=== PATIENT | male | born 1985 | race Caucasian/White ===

== ENCOUNTER 2016-08-30 02:38 | Emergency (ER) | payer MEDICAID ==
[~2016-08-30] VITALS: Ht 170.2 cm; Wt 57.0 kg
[2016-08-30 02:41] VITALS: Ht 170.2 cm; Wt 57.0 kg
[2016-08-30] MEDS ORDERED: CEFTRIAXONE 250 MG INJ IM ONE (03:30)
[2016-08-30] MEDS ORDERED: AZITHROMYCIN 250 MG TAB PO ONE (03:30)
--- NOTE | 2016-08-30 03:40 | ERD ---
ER Documentation Chief Complaint Date/Time DATE: 08/30/16 TIME: 03:38 Chief Complaint scroatal pain x 2 days, painful urination HPI 31-year-old male presenting emergency department for complaints of dysuria, penile discharge for 2 weeks now, scrotal pain for 2 days. Patient's complaining of right scrotal pain, throbbing pain, 6/10 scale, accompanied with redness and swelling. Patient also has been having dysuria for 2 weeks, with penile discharge, yellowish, burning pain, for/10 scale, worse upon urination. Patient had unprotected sex 2 weeks ago prior to having the symptoms, patient had this partner and it was new. Patient denies any flank pain. Patient denies any fever or chills. ROS All systems reviewed and are negative except as per history of present illness. Medications Home Meds Reported Medications [none] Unknown Strength No Conflict Check 08/30/16 Allergies Allergies: Coded Allergies: No Known Allergy (Unverified , 08/30/16) PMhx/Soc Medical and Surgical Hx: pt denies Medical Hx, pt denies Surgical Hx FmHx Family History: No coronary disease, No diabetes, No other Physical Exam Vitals Vital Signs Date Time Temp Pulse Resp B/P Pulse Ox O2 Delivery O2 Flow Rate FiO2 08/30/16 02:41 97.4 102 20 136/81 100 Physical Exam GENERAL: The patient is well developed and appropriate for usual state of health, in no apparent distress. CHEST: Clear to auscultation bilaterally. There are no rales, wheezes or rhonchi. HEART: Regular rate and rhythm. No murmurs, clicks, rubs or gallops. No S3 or S4. ABDOMEN: Soft, nontender and nondistended. Good bowel sounds. No rebound or guarding. No gross peritonitis. No gross organomegaly or masses. No Camejo sign or McBurney point tenderness. BACK: No midline or flank tenderness. EXTREMITIES: Equal pulses bilaterally. There is no peripheral clubbing, cyanosis or edema. No focal swelling or erythema. Full range of motion. Grossly neurovascularly intact. NEURO: Alert and oriented. Cranial nerves 2-12 intact. Motor strength in all 4 extremities with 5/5 strength. Sensation grossly intact. Normal speech and gait. SKIN: There is no apparent rash or petechia. The skin is warm and dry. HEMATOLOGIC AND LYMPHATIC: There is no evidence of excessive bruising or lymphedema. No gross cervical, axillary, or inguinal lymphadenopathy. : Noted right scrotal redness and swelling, tenderness on palpation noted. No penile discharge noted. No lesions noted Results 24 hrs Current Medications Medications (Trade) Dose Ordered Sig/Chato Route PRN Reason Start Time Stop Time Status Last Admin Dose Admin Azithromycin (Zithromax) 1,000 mg ONCE ONCE PO 08/30/16 03:30 08/30/16 03:31 DC 08/30/16 03:28 Ceftriaxone Sodium (Rocephin) 250 mg ONCE ONCE IM 08/30/16 03:30 08/30/16 03:31 DC 08/30/16 03:28 azithromycin and Rocephin was given here in emergency department for treatment for STD. PROCEDURE: Ultrasound of the scrotum. CLINICAL INDICATION: Pain. TECHNIQUE: Ultrasound of the scrotum was performed utilizing color Doppler flow imaging COMPARISON: There are no similar studies submitted for comparison. FINDINGS: Right testis: Size (cm): 3.5 x 2.5 x 2.9 Echotexture: Normal Doppler flow: Present Epididymal head: Increased vascular flow is seen in the right epididymal head. Hydrocele: There is mild to moderate hydrocele. Varicocele: None Left testis: Size (cm): 3.7 x 2.5 x 2.4 Echotexture: Normal Doppler flow: Present Epididymal head: Unremarkable Hydrocele: None Varicocele: None IMPRESSION: Increased vascular flow within the right epididymis with small to moderate right hydrocele. Findings are suggestive of right-sided epididymoorchitis. RPTAT: HIKT .Kel Addison MD, MD Date Time Electronically viewed and signed by .Kel Addison MD, on 08/30/2016 04:00 .T/ CC: LEANNA HILLIARD BULK MAIL CLERK Procedures/MDM Medical decision making: Patient symptoms is likely consistent with epididymoorchitis, no symptoms of any abscess at this time. No testicular torsion noted. Patient most like he was exposed to sexually transmitted disease from unprotected sex, was given Rocephin and azithromycin here in emergency department. Patient was given a prescription for Augmentin and Bactrim DS, to advised to follow-up with primary care doctor in 2-3 days for reevaluation of symptoms, patient was advised to return to emergency department for any worsening symptoms. Patient was given ibuprofen for pain, Lutsen for severe pain. Departure Diagnosis: Primary Impression: Epididymo-orchitis Condition: Stable Patient Instructions: Treating Epididymitis and Orchitis LEANNA HILLIARD NP Aug 30, 2016 03:40
--- NOTE | 2016-08-30 04:00 | RADRPT ---
PROCEDURE: Ultrasound of the scrotum. CLINICAL INDICATION: Pain. TECHNIQUE: Ultrasound of the scrotum was performed utilizing color Doppler flow imaging COMPARISON: There are no similar studies submitted for comparison. FINDINGS: Right testis: Size (cm): 3.5 x 2.5 x 2.9 Echotexture: Normal Doppler flow: Present Epididymal head: Increased vascular flow is seen in the right epididymal head. Hydrocele: There is mild to moderate hydrocele. Varicocele: None Left testis: Size (cm): 3.7 x 2.5 x 2.4 Echotexture: Normal Doppler flow: Present Epididymal head: Unremarkable Hydrocele: None Varicocele: None IMPRESSION: Increased vascular flow within the right epididymis with small to moderate right hydrocele. Finding s are suggestive of right-sided epididymoorchitis. RPTAT: HIKT .Kel Addison MD, Date Time Electronically viewed and signed by .Kel Addison MD, on 08/30/2016 04:00 .T/
[2016-08-30 04:07] LABS: URINE BLOOD (Dip) POC 1+ (NEGATIVE)
[2016-08-30] MEDS ORDERED: AMOX1TAB10 PO (04:07)
[2016-08-30] MEDS ORDERED: HYDR-906 PO (04:07)
[2016-08-30] MEDS ORDERED: IBUP-1542 PO (04:07)
[2016-08-30] MEDS ORDERED: BACTDS PO (04:07)
== END 2016-08-30 04:21 | disposition home or self-care (01) ==
LOC: FTE 02:38
DX: N45.3 Epididymo-orchitis (principal); Z87.891 Personal history of nicotine dependence
CPT/HCPCS: 76870; 81003; 87591; 96372; J0696; Z7502; Z7610

== ENCOUNTER 2016-09-01 04:51 | Emergency (ER) | payer MEDICAID ==
[~2016-09-01] VITALS: Ht 167.6 cm; Wt 57.0 kg
[~2016-09-01 04:51] MED LIST: AMOX1TAB10 PO; BACTDS PO; HYDR-906 PO; IBUP-1542 PO
[2016-09-01 04:54] VITALS: Ht 167.6 cm; Wt 57.0 kg
--- NOTE | 2016-09-01 05:04 | ERD ---
ER Documentation Chief Complaint Date/Time DATE: 09/01/16 TIME: 05:02 Chief Complaint lost presciption for pain med and antibiotics per patient verbatim HPI This is a 31-year-old male presents to the emergent room for a medication refill. The patient was seen in the emergency department a few days ago was diagnosed with an infection. The patient was discharged with Augmentin, Bactrim , Motrin, and [place] however he states he lost medication prescription was unable to get them filled. He presents to the ER for a new prescription of his medication. ROS All systems reviewed and are negative except as per history of present illness. Medications Home Meds Active Scripts Hydrocodone/Acetaminophen ([place] 5-325 Tablet) 1 Each Tablet, 1 TAB PO Q6H Y for PAIN, #20 TAB Prov:LEANNA HILLIARD CARDIOLOGY COORDINATOR 08/30/16 Ibuprofen* (Motrin*) 600 Mg Tab, 600 MG PO Q6H Y for PAIN AND OR ELEVATED TEMP, #30 TAB Prov:LEANNA HILLIARD NP 08/30/16 Sulfamethoxazole-Trimethoprim* (Bactrim* DS) 800-160 Mg Tab, 1 TAB PO BID for 10 Days, TAB Prov:LEANNA HILLIARD CARDIOLOGY COORDINATOR 08/30/16 Amoxicillin/Potassium Clav (Amox-Clav 875-125 mg Tablet) 875-125 mg Tab, 1 TAB PO BID for 10 Days, #20 TAB Prov:LEANNA HILLIARD NP 08/30/16 Reported Medications [none] Unknown Strength No Conflict Check 08/30/16 Allergies Allergies: Coded Allergies: No Known Allergy (Unverified , 08/30/16) PMhx/Soc History of Surgery: No Anesthesia Reaction: No Hx Neurological Disorder: No Hx Respiratory Disorders: No Hx Cardiac Disorders: No Hx Psychiatric Problems: No Hx Miscellaneous Medical Probl: No Hx Alcohol Use: Yes (socially) Hx Substance Use: Yes (marijuana) Hx Tobacco Use: Yes (quit cigarettes, now vaping) Physical Exam Vitals Vital Signs Date Time Temp Pulse Resp B/P Pulse Ox O2 Delivery O2 Flow Rate FiO2 09/01/16 04:54 97.8 115 18 144/72 99 Physical Exam Const: No acute distress Head: Atraumatic Eyes: Normal Conjunctiva ENT: Normal External Ears, Nose and Mouth. Neck: Full range of motion..~ No meningismus. Resp: Clear to auscultation bilaterally Cardio: Regular rate and rhythm, no murmurs Abd: Soft, non tender, non distended. Normal bowel sounds Skin: No petechiae or rashes Back: No midline or flank tenderness Ext: No cyanosis, or edema Neur: Awake and alert Psych: Normal Mood and Affect Procedures/MDM This 31-year-old male presents to the emergency room for medication refill. He lost his room scrubs. He was seen in the emergency room earlier this week and diagnosed with epididymal orchitis. I have looked up his serology and he was positive for gonorrhea. The patient was given Rocephin and azithromycin here in the emergency room. He will be given a prescription for Augmentin, Bactrim, Motrin, and [place]. Departure Diagnosis: Primary Impression: Encounter for medication refill Condition: Stable MARIANNE JORDAN DO Sep 01, 2016 05:04
[2016-09-01] MEDS ORDERED: IBUP800T25 PO (05:05)
[2016-09-01] MEDS ORDERED: HYDR-906 PO (05:05)
[2016-09-01] MEDS ORDERED: BACTDS PO (05:05)
[2016-09-01] MEDS ORDERED: AMOX1TAB10 PO (05:05)
== END 2016-09-01 05:08 | disposition home or self-care (01) ==
LOC: FTE 04:51
DX: Z76.0 Encounter for issue of repeat prescription (principal); Z87.891 Personal history of nicotine dependence
CPT/HCPCS: 99281

== ENCOUNTER 2016-12-26 05:53 | Emergency (ER) | payer SELFPAY ==
[~2016-12-26] VITALS: Ht 167.6 cm; Wt 57.0 kg
[~2016-12-26 05:53] MED LIST changes: +IBUP800T25 PO
[2016-12-26 05:54] VITALS: Ht 167.6 cm; Wt 57.0 kg
--- NOTE | 2016-12-26 06:26 | ERD ---
ER Documentation Chief Complaint Date/Time DATE: 12/26/16 TIME: 06:25 Chief Complaint painful and burning in urination x 4 days HPI 31-year-old male who is otherwise healthy comes emergency room with painful urination and penile discharge for the past 4 days. Patient reports that he has had an infection in the past several months ago. He reports that he is sexually active with multiple partners and at times he does use protection other times he does not. He has not had any fevers, chills, nausea or vomiting. He denies hematuria or abdominal pain. He denies testicular pain, or groin pain. ROS All systems reviewed and are negative except as per history of present illness. Medications Home Meds Active Scripts Hydrocodone/Acetaminophen ([place] 5-325 Tablet) 1 Each Tablet, 1 TAB PO Q6H Y for PAIN, #15 TAB Prov:MARIANNE JORDAN DO 09/01/16 Ibuprofen* (Motrin*) 800 Mg Tab, 800 MG PO Q6H Y for PAIN AND OR ELEVATED TEMP, #30 TAB Prov:MARIANNE JORDAN DO 09/01/16 Sulfamethoxazole-Trimethoprim* (Bactrim* DS) 800-160 Mg Tab, 1 TAB PO BID for 10 Days, TAB Prov:MARIANNE JORDAN DO 09/01/16 Amoxicillin/Potassium Clav (Amox-Clav 875-125 mg Tablet) 875-125 mg Tab, 1 TAB PO BID for 10 Days, #20 TAB Prov:MARIANNE JORDAN DO 09/01/16 Hydrocodone/Acetaminophen ([place] 5-325 Tablet) 1 Each Tablet, 1 TAB PO Q6H Y for PAIN, #20 TAB Prov:LEANNA HILLIARD HAND PRINTED CIRCUIT BOARD ASSEMBLER 08/30/16 Ibuprofen* (Motrin*) 600 Mg Tab, 600 MG PO Q6H Y for PAIN AND OR ELEVATED TEMP, #30 TAB Prov:LEANNA HILLIARD HAND PRINTED CIRCUIT BOARD ASSEMBLER 08/30/16 Sulfamethoxazole-Trimethoprim* (Bactrim* DS) 800-160 Mg Tab, 1 TAB PO BID for 10 Days, TAB Prov:LEANNA HILLIARD HAND PRINTED CIRCUIT BOARD ASSEMBLER 08/30/16 Amoxicillin/Potassium Clav (Amox-Clav 875-125 mg Tablet) 875-125 mg Tab, 1 TAB PO BID for 10 Days, #20 TAB Prov:LEANNA HILLIARD NP 08/30/16 Reported Medications [none] Unknown Strength No Conflict Check 08/30/16 Allergies Allergies: Coded Allergies: No Known Allergy (Unverified , 08/30/16) PMhx/Soc History of Surgery: No Anesthesia Reaction: No Hx Neurological Disorder: No Hx Respiratory Disorders: No Hx Cardiac Disorders: No Hx Psychiatric Problems: No Hx Miscellaneous Medical Probl: No Hx Alcohol Use: Yes (socially) Hx Substance Use: Yes (marijuana) Hx Tobacco Use: Yes (quit cigarettes, now vaping) Physical Exam Vitals Vital Signs Date Time Temp Pulse Resp B/P Pulse Ox O2 Delivery O2 Flow Rate FiO2 12/26/16 05:54 97.6 99 20 134/73 99 Physical Exam General: Well-developed, well-nourished. The patient appears in no acute distress. HEENT: Head is normocephalic, atraumatic. No scleral icterus. Neck: Supple. Nontender. Lungs: Clear to auscultation. Normal air movement. Heart: Regular rate and rhythm. S1 and S2 are normal. No murmurs, gallops, or rubs. Abdomen: Nondistended. Extremities: No clubbing or cyanosis. Moving extremities x 4. No weakness. Neurologic: Alert and oriented 3. No focal deficits. Normal speech and gait. Skin: Normal turgor. No rash or lesions. Results 24 hrs Current Medications Medications (Trade) Dose Ordered Sig/Chato Route PRN Reason Start Time Stop Time Status Last Admin Dose Admin Ceftriaxone Sodium (Rocephin) 250 mg ONCE ONCE IM 12/26/16 06:30 12/26/16 06:31 Azithromycin (Zithromax) 1,000 mg ONCE ONCE PO 12/26/16 06:30 12/26/16 06:31 Lidocaine (Xylocaine 1% (Mdv) 20 ml) 2 ml ONCE ONCE IM 12/26/16 06:30 12/26/16 06:31 Procedures/MDM ED course: Patient based on patient's history, he was treated for urethritis with Rocephin 250 mg IM and Zithromax 1 g by mouth. MDM: 31-year-old male comes to emergency room with painful urination, patient's sexual history includes multiple partners where he does not always use protection. He was treated for urethritis in the emergency department. He was advised that if he needs further testing including hepatitis, HIV that he needs to follow-up outpatient. He was given a list of clinics. Departure Diagnosis: Primary Impression: Urethritis Condition: Good Patient Instructions: Urethritis in Men Referrals: COMMUNITY CLINICS YOU HAVE RECEIVED A MEDICAL SCREENING EXAM AND THE RESULTS INDICATE THAT YOU DO NOT HAVE A CONDITION THAT REQUIRES URGENT TREATMENT IN THE EMERGENCY DEPARTMENT. FURTHER EVALUATION AND TREATMENT OF YOUR CONDITION CAN WAIT UNTIL YOU ARE SEEN IN YOUR DOCTORS OFFICE WITHIN THE NEXT 1-2 DAYS. IT IS YOUR RESPONSIBILITY TO MAKE AN APPOINTMENT FOR FOLOW-UP CARE. IF YOU HAVE A PRIMARY DOCTOR --you should call your primary doctor and schedule an appointment IF YOU DO NOT HAVE A PRIMARY DOCTOR YOU CAN CALL OUR PHYSICIAN REFERRAL HOTLINE AT IF YOU CAN NOT AFFORD TO SEE A PHYSICIAN YOU CAN CHOSE FROM THE FOLLOWING [facility] [address] [facility] [address] [facility] [address] [facility] [address] [facility] [address]. [facility]. [address] [facility]. [facility] YOU HAVE RECEIVED A MEDICAL SCREENING EXAM AND THE RESULTS INDICATE THAT YOU DO NOT HAVE A CONDITION THAT REQUIRES URGENT TREATMENT IN THE EMERGENCY DEPARTMENT. FURTHER EVALUATION AND TREATMENT OF YOUR CONDITION CAN WAIT UNTIL YOU ARE SEEN IN YOUR DOCTORS OFFICE WITHIN THE NEXT 1-2 DAYS. IT IS YOUR RESPONSIBILITY TO MAKE AN APPOINTMENT FOR FOLOW-UP CARE. IF YOU HAVE A PRIMARY DOCTOR --you should call your primary doctor and schedule and appointment IF YOU DO NOT HAVE A PRIMARY DOCTOR YOU CAN CALL OUR PHYSICIAN REFERRAL HOTLINE AT . IF YOU CAN NOT AFFORD TO SEE A PHYSICIAN YOU CAN CHOSE FROM THE FOLLOWING [facility] INSTITUTIONS: [facility] [address] [place] [address] [facility] [address] [place] [address] [facility] [address] [address] [facility] Additional Instructions: Call your primary care doctor TOMORROW for an appointment during the next 1-2 days.See the doctor sooner or return here if your condition worsens before your appointment time. ROBERTO ARMENTA PA-C December 26, 2016 06:26
[2016-12-26] MEDS ORDERED: LIDOCAINE 1% (MDV) 20 ML INJ IM ONE (06:30)
[2016-12-26] MEDS ORDERED: CEFTRIAXONE 250 MG INJ IM ONE (06:30)
[2016-12-26] MEDS ORDERED: AZITHROMYCIN 250 MG TAB PO ONE (06:30)
[2016-12-26 06:37] LABS: URINE BLOOD (Dip) POC Trace-intact (NEGATIVE)
== END 2016-12-26 07:10 | disposition home or self-care (01) ==
LOC: FTE 05:53
DX: N34.2 Other urethritis (principal); F17.210 Nicotine dependence, cigarettes, uncomplicated
CPT/HCPCS: 81003; 87591; 96372; 99284; J0696

== ENCOUNTER 2017-04-25 03:30 | Emergency (ER) | payer MEDICAID ==
[~2017-04-25] VITALS: Ht 165.1 cm; Wt 56.5 kg
[2017-04-25 03:35] VITALS: Ht 165.1 cm; Wt 56.5 kg
[2017-04-25] MEDS ORDERED: CEFTRIAXONE 250 MG INJ IM ONE (04:00)
[2017-04-25] MEDS ORDERED: AZITHROMYCIN 250 MG TAB PO ONE (04:00)
--- NOTE | 2017-04-25 04:22 | ERD ---
ER Documentation Chief Complaint Date/Time DATE: 04/25/17 TIME: 04:16 Chief Complaint pain when urinate x 3 days HPI 31 year old male presents here in the emergency department for complains of dysuria for the last 3 days. Patient denies any penile discharge. Patient denies any hematuria. Patient had new sexual partner, last sexual intercourse was 5 days ago, was unprotected sex. he does complain of pain and burning pain 4 /10 scale, is worse upon urination. denies flank pain abd pain or scrotal pain ROS All systems reviewed and are negative except as per history of present illness. Medications Home Meds Active Scripts Hydrocodone/Acetaminophen ([place] 5-325 Tablet) 1 Each Tablet, 1 TAB PO Q6H Y for PAIN, #15 TAB Prov:MARIANNE JORDAN DO 09/01/16 Ibuprofen* (Motrin*) 800 Mg Tab, 800 MG PO Q6H Y for PAIN AND OR ELEVATED TEMP, #30 TAB Prov:MARIANNE JORDAN DO 09/01/16 Sulfamethoxazole-Trimethoprim* (Bactrim* DS) 800-160 Mg Tab, 1 TAB PO BID for 10 Days, TAB Prov:MARIANNE JORDAN DO 09/01/16 Amoxicillin/Potassium Clav (Amox-Clav 875-125 mg Tablet) 875-125 mg Tab, 1 TAB PO BID for 10 Days, #20 TAB Prov:MARIANNE JORDAN DO 09/01/16 Hydrocodone/Acetaminophen ([place] 5-325 Tablet) 1 Each Tablet, 1 TAB PO Q6H Y for PAIN, #20 TAB Prov:LEANNA HILLIARD NP 08/30/16 Ibuprofen* (Motrin*) 600 Mg Tab, 600 MG PO Q6H Y for PAIN AND OR ELEVATED TEMP, #30 TAB Prov:LEANNA HILLIARD INTELLIGENCE SUPPORT OFFICER 08/30/16 Sulfamethoxazole-Trimethoprim* (Bactrim* DS) 800-160 Mg Tab, 1 TAB PO BID for 10 Days, TAB Prov:LEANNA HILLIARD INTELLIGENCE SUPPORT OFFICER 08/30/16 Amoxicillin/Potassium Clav (Amox-Clav 875-125 mg Tablet) 875-125 mg Tab, 1 TAB PO BID for 10 Days, #20 TAB Prov:LEANNA HILLIARD NP 08/30/16 Reported Medications [none] Unknown Strength No Conflict Check 1/26/17 Allergies Allergies: Coded Allergies: No Known Allergy (Unverified , 04/25/17) PMhx/Soc Medical and Surgical Hx: pt denies Medical Hx, pt denies Surgical Hx History of Surgery: No Anesthesia Reaction: No Hx Neurological Disorder: No Hx Respiratory Disorders: No Hx Cardiac Disorders: No Hx Psychiatric Problems: No Hx Miscellaneous Medical Probl: No Hx Alcohol Use: Yes (socially) Hx Substance Use: Yes (marijuana) Hx Tobacco Use: Yes (quit cigarettes, now vaping) Smoking Status: Former smoker FmHx Family History: No coronary disease, No diabetes, No other Physical Exam Vitals Vital Signs Date Time Temp Pulse Resp B/P Pulse Ox O2 Delivery O2 Flow Rate FiO2 04/25/17 03:35 98.6 102 18 141/78 98 Physical Exam GENERAL: The patient is well developed and appropriate for usual state of health, in no apparent distress. CHEST: Clear to auscultation bilaterally. There are no rales, wheezes or rhonchi. HEART: Regular rate and rhythm. No murmurs, clicks, rubs or gallops. No S3 or S4. ABDOMEN: Soft, nontender and nondistended. Good bowel sounds. No rebound or guarding. No gross peritonitis. No gross organomegaly or masses. No Camejo sign or McBurney point tenderness. BACK: No midline or flank tenderness. EXTREMITIES: Equal pulses bilaterally. There is no peripheral clubbing, cyanosis or edema. No focal swelling or erythema. Full range of motion. Grossly neurovascularly intact. NEURO: Alert and oriented. Cranial nerves 2-12 intact. Motor strength in all 4 extremities with 5/5 strength. Sensation grossly intact. Normal speech and gait. SKIN: There is no apparent rash or petechia. The skin is warm and dry. HEMATOLOGIC AND LYMPHATIC: There is no evidence of excessive bruising or lymphedema. No gross cervical, axillary, or inguinal lymphadenopathy. : no penile d/c, no scrotal redness tenderness or swelling, no lesions. Results 24 hrs Laboratory Tests Test 04/25/17 04:09 Urine Color YELLOW Urine Clarity CLOUDY Urine pH 6.0 Urine Specific [place] 1.027 Urine Ketones NEGATIVEmg/dL Urine Nitrite NEGATIVEmg/dL Urine Bilirubin NEGATIVEmg/dL Urine Urobilinogen 2+mg/dL Urine Leukocyte Esterase 3+Juliann/ul Urine Microscopic RBC 4/HPF Urine Microscopic WBC > 182/HPF Urine Bacteria FEW/HPF Urine Mucus FEW/HPF Urine Hemoglobin NEGATIVEmg/dL Urine Glucose NEGATIVEmg/dL Urine Total Protein 1+mg/dl Current Medications Medications (Trade) Dose Ordered Sig/Chato Route PRN Reason Start Time Stop Time Status Last Admin Dose Admin Azithromycin (Zithromax) 1,000 mg ONCE ONCE PO 04/25/17 04:00 04/25/17 04:01 DC 04/25/17 04:08 Ceftriaxone Sodium (Rocephin) 250 mg ONCE ONCE IM 04/25/17 04:00 04/25/17 04:01 DC 04/25/17 04:07 IM Rocephin and zithromax given for std treatment Procedures/MDM Medical Decision Making: Patients symptoms are consistent with urinary tract infection. There is low suspicion for pyelonephritis. There is low suspicion for abdominal emergencies at this time. Patients abdominal exam is normal. There is low suspicion for sepsis. Patient appears well and is hemodynamically stable.he also most likely got exposed to STDs and was treated for it. pending GC and chlamydia test Disposition: Home. Stable Prescription Cipro, Pyridium Instructions: Patient is advised to take medications as prescribed. Patient is advised to rest, increase fluid intake and do good perineal hygiene. Patient is advised that if symptoms are worse, severe abdominal pain, uncontrolled vomiting , high fever, severe flank pain, worst signs and symptoms, to return to the emergency department immediately. Otherwise, patient can follow up with primary care doctor in 5-7 days. Departure Diagnosis: Primary Impression: UTI (urinary tract infection) Urinary tract infection type: acute cystitis Hematuria presence: without hematuria Qualified Code: N30.00 - Acute cystitis without hematuria Condition: Stable Patient Instructions: Understanding Urinary Tract Infections (UTIs) Additional Instructions: Patient is advised to take medications as prescribed. Patient is advised to rest , increase fluid intake and do good perineal hygiene. Patient is advised that if symptoms are worse, severe abdominal pain, uncontrolled vomiting, high fever , severe flank pain, worst signs and symptoms, to return to the emergency department immediately. Otherwise, patient can follow up with primary care doctor in 5-7 days. LEANNA HILLIARD NP Apr 25, 2017 04:22
[2017-04-25 05:00] LABS: ADD UMIC YES; UR ASCORBIC ACID NEGATIVE (NEGATIVE); UR BACTERIA FEW /HPF (NONE SEEN); UR BILIRUBIN (Dip) NEGATIVE (NEGATIVE); UR BLOOD (Dip) NEGATIVE (NEGATIVE); UR CLARITY CLOUDY (CLEAR); UR COLOR YELLOW (YELLOW); UR GLUCOSE (Dip) NEGATIVE (NEGATIVE); UR KETONES (Dip) NEGATIVE (NEGATIVE); UR LEUKOCYTE ESTERASE (Dip) 3+ Leu/ul (NEGATIVE); UR MUCUS FEW /HPF (NONE SEEN); UR NITRITE (Dip) NEGATIVE (NEGATIVE); UR RBC 4 /HPF (0-5); UR SPECIFIC GRAVITY (Dip) 1.027 (1.003-1.030); UR TOTAL PROTEIN (Dip) 1+ mg/dl (NEGATIVE); UR UROBILINOGEN (Dip) 2+ mg/dL (NEGATIVE)
[2017-04-25] MEDS ORDERED: PHEN-538 PO (05:09)
[2017-04-25] MEDS ORDERED: CIPR500T4 PO (05:09)
[2017-04-25 05:19] VITALS: BP 133/72; PULSE 77; RESP 16; TEMP 98.6
== END 2017-04-25 05:20 | disposition home or self-care (01) ==
LOC: FTE 03:30
DX: N30.00 Acute cystitis without hematuria (principal); Z87.891 Personal history of nicotine dependence
CPT/HCPCS: 81001; 87591; 96372; J0696; Z7502; Z7610

== ENCOUNTER 2018-10-19 03:45 | Emergency (ER) | payer SELFPAY ==
[~2018-10-19] VITALS: Ht 167.6 cm; Wt 58.2 kg
[~2018-10-19 03:45] MED LIST changes: +CIPR500T4 PO; +HYDR-4011 PO; -HYDR-906 PO; -IBUP800T25 PO; +IBUP800T48 PO; +PHEN-538 PO
[2018-10-19 03:59] VITALS: BP 142/79; PULSE 101; RESP 18; Ht 167.6 cm; Wt 58.2 kg
== END 2018-10-19 06:50 | disposition left against medical advice (07) ==
LOC: E/R 03:45
DX: Z53.21 Procedure and treatment not carried out due to patient leaving prior to being seen by health care provider (principal)